=== PATIENT | female | born 1980 | race Caucasian/White ===

== ENCOUNTER 2024-04-17 20:50 | Emergency (ER) | payer OTHER ==
[2024-04-17] MEDS ORDERED: Cephalexin 500 MG Cap PO ONE (20:51)
[2024-04-17 21:19] VITALS: BP 110/61; PULSE 86
== END 2024-04-17 21:40 | disposition home or self-care (01) ==
LOC: FB.ED 20:50
DX: S61.112A Laceration without foreign body of left thumb with damage to nail, initial encounter (principal); Z88.0 Allergy status to penicillin; Z88.8 Allergy status to other drugs, medicaments and biological substances; Z79.899 Other long term (current) drug therapy; X58.XXXA Exposure to other specified factors, initial encounter
CPT/HCPCS: 99282; A9270